=== PATIENT | female | born 1950 | race Caucasian/White ===

== ENCOUNTER 2019-02-10 06:28 | Day surgery (SDC) | payer OTHER, MEDICARE ==
[2019-02-09 15:51] LABS: Absolute Lymphocytes (CBC) 5.2 K/uL (0.7-4.9); Basophils % 0.6 % (0-1.3); Eosinophils % 1.5 % (0-4.4); Hematocrit 43.4 % (36.0-45.0); Lymphocytes % 52.5 % (15.3-44.8); MPV 9.3 fL (7.6-11.3); Monocytes % 4.8 % (3.3-12.3); RBC Red Blood Cell Count 4.91 M/uL (3.86-4.86)
[2019-02-09 15:57] LABS: Protime INR 0.92
--- NOTE | 2019-02-09 16:03 | RAD REPORT ---
EXAM DESCRIPTION: Meghan Tate (2 Views)02/09/2019 3:46 pm CLINICAL HISTORY: Hypertension/preop for cardiac catheterization COMPARISON: 2016 FINDINGS: The lungs appear clear of acute infiltrate. The heart is normal size IMPRESSION: No acute abnormalities displayed
[2019-02-09 16:04] LABS: Potassium 3.9 mmol/L (3.5-5.1)
[2019-02-09 16:58] LABS: Blood Morphology Comment NOT SEEN (NOT SEEN); Platelet Estimate ADEQ
--- OUTSIDE RECORDS SUMMARY | 2019-02-10 06:29 | XMS REPORT ---
:1950 [facility] Address [address] [place] [address] Dr. Felton [address] [place] [id number] Care Team Providers Name Role Phone Unavailable Unavailable Unavailable Problems This patient has no known problems. Allergies, Adverse Reactions, Alerts This patient has no known allergies or adverse reactions. Medications This patient has no known medications.
[2019-02-10] MEDS ORDERED: LIDOCAINE 1% MPF 30 ML VIAL ONE (06:56)
[2019-02-10] MEDS ORDERED: NA CHLORIDE 0.9% 500 ML ONE (06:56)
[2019-02-10] MEDS ORDERED: HEPA 1000U/500MLS 1,000 UNIT/500 ML BAG IV ONE (06:56)
[2019-02-10] MEDS ORDERED: MIDAZOLAM HCL 2 MG/2 ML INJ ONE (07:30)
[2019-02-10] MEDS ORDERED: ATROPINE SULF 1 MG/10 ML SYR IV ONE (07:30)
[2019-02-10] MEDS ORDERED: FENTANYL CITR 100 MCG/2 ML ONE (07:30)
[2019-02-10] MEDS ORDERED: NA CHLORIDE 0.9% 0 ML ONE (07:31)
--- NOTE | 2019-02-10 12:55 | OP ---
Surgeon: Jerald Metz MD Tax Services Intern: Sonia Meneses. History Of Present Illness: Ms. Mckeon is a 68-year-old white woman. She is a patient of Dr. Jones and has hypertension, dyslipidemia, had atypical chest pain, abnormal stress test. Brought to the physical laboratory assistant today as an outpatient. She had left heart catheterization with selective co ronary arteriogram. Procedure In Detail: She was prepped and draped in the routine sterile fashion, given 3 mg of Versed for IV sedation. Six-Beninese sheath introduced in the right common femoral artery. Angiography ther e was normal. Angio-Seal was used to close the case. A Azalia catheters 6-Beninese were used to do t he coronary injection. She had a normal RCA, normal circumflex, normal left main. Her LAD showed th at is free of disease approximately after the second diagonal. The artery is very small, about 1 mm in size, probably secondary to diffuse plaquing. There were no focal stenosis. Six-Beninese sheath an d catheters were used. No complications. Blood Loss: 5 cc. Postoperative Diagnosis: Mild CAD. Plan: Plan is for medical therapy. We will consider statin if she can tolerate it. Conscious Sedation: 30 minutes. DELROY/AYLEEN Voice ID: [id number] Report ID: [id number]
== END 2019-02-10 09:50 | disposition home or self-care (01) ==
LOC: CCL 06:28
DX: I25.10 Atherosclerotic heart disease of native coronary artery without angina pectoris (principal); I10 Essential (primary) hypertension; E78.5 Hyperlipidemia, unspecified; E78.6 Lipoprotein deficiency; K21.9 Gastro-esophageal reflux disease without esophagitis; M81.0 Age-related osteoporosis without current pathological fracture; Z91.048 Other nonmedicinal substance allergy status; Z82.49 Family history of ischemic heart disease and other diseases of the circulatory system
CPT/HCPCS: 85025; 80048; 36415; 85610; 85730; 71046; 93454; C1893; C1760; J2250; J3010; J0583

== ENCOUNTER 2020-05-08 16:19 | Emergency (ER) | payer OTHER, MEDICARE ==
[2020-05-08] MEDS ORDERED: NA CHLORIDE 0.9% 1,000 ML ONE (17:32)
[2020-05-08 17:38] LABS: Absolute Lymphocytes (CBC) 5.1 K/uL (0.7-4.9); Basophils % 0.3 % (0-1.3); Hematocrit 40.2 % (36.0-45.0); MPV 8.9 fL (7.6-11.3)
[2020-05-08 17:46] LABS: Protime INR 0.92
[2020-05-08 17:59] LABS: ALT/SGPT 20 U/L (12-78); AST/SGOT 19 U/L (15-37); Albumin 3.7 g/dL (3.4-5.0); Alkaline Phosphatase 68 U/L (45-117); BUN Blood Urea Nitrogen 19 mg/dL (7-18); Bicarbonate 29 mmol/L (21-32); Bilirubin Direct < 0.1 mg/dL (0-0.2); Bilirubin Total 0.3 mg/dL (0.2-1.0); Glucose Level 166 mg/dL (74-106); Lipase 189 U/L (73-393); NT PRO-BNP 292 pg/mL (<125); Potassium 3.1 mmol/L (3.5-5.1); Protein, Total 7.4 g/dL (6.4-8.2); Sodium Level 138 mmol/L (136-145); Troponin (Emerg Dept Use Only) < 0.02 ng/mL (0.0-0.045)
[2020-05-08 18:30] LABS: Urine Blood TRACE (NEG); Urine Glucose NEGATIVE (NEG); Urine Protein NEGATIVE (NEG); Urine pH 5.5 (5.0-7.0)
[2020-05-08] MEDS ORDERED: NS KCL 20MEQ 1,000 ML IV ONE (18:31)
[2020-05-08] MEDS ORDERED: POTASSIUM 25 MEQ EFFERV TAB ONE (18:31)
[2020-05-08] MEDS ORDERED: CIPROFLOXACIN 400mg IV 400 MG/200 ML BAG IV ONE (18:31)
[2020-05-08] MEDS ORDERED: METRONIDAZOLE 500mg IVPB 500 MG/100 ML BAG IV ONE (18:31)
--- NOTE | 2020-05-08 18:51 | RAD REPORT ---
EXAM DESCRIPTION: CT - Abdomen Pelvis W Contrast - 05/08/2020 6:28 pm CLINICAL HISTORY: Abdominal pain COMPARISON: none. TECHNIQUE: Computed axial tomography of the abdomen pelvis was obtained. 100 cc Isovue-300 was admin istered intravenously. Oral contrast was not requested which limits evaluation of bowel. All CT scans are performed using dose optimization technique as appropriate and may include automated exposure control or mA/KV adjustment according to patient size. FINDINGS: The liver, spleen, pancreas, adrenal and kidneys appear unremarkable. There is no evidence of diverticulitis. Normal appendix. Hysterectomy Small hiatal hernia. Wall of the distal stomach is mildly thickened IMPRESSION: Wall of the distal stomach is mildly thickened. This could be secondary to incomplete di stention or pathology such as inflammation. .
--- NOTE | 2020-05-08 18:52 | RAD REPORT ---
EXAM DESCRIPTION: Meghan Single View05/08/2020 5:39 pm CLINICAL HISTORY: Cough COMPARISON: 2019 FINDINGS: The lungs appear clear of acute infiltrate. The heart is normal size IMPRESSION: No acute abnormalities displayed
--- NOTE | 2020-05-08 20:35 | ER ---
Nurse's Notes [facility] Name: Kasia Mckeon Age: 69 yrs Sex: Female : 1950 Arrival Date: 05/08/2020 Time: 16:21 Bed 13 Private MD: Diagnosis: Diarrhea, unspecified;Abdominal tenderness;Weakness;Hypokalemia Presentation: 05/08 16:29 Chief complaint: Patient states: "my symptoms started about 45 min ago. I was having jd3 sever pain that felt like i needed to have diarrhea. but nothing came out. I started sweating and both my hands got numb and I was light headed and shortness. My blood pressure was a little low as well. right now the biggest thing is a headache dizziness, and the shortness of breath. the tingling went away.". Coronavirus screen: At this time, the client does not indicate any symptoms associated with coronavirus-19. Ebola Screen: Patient negative for fever greater than or equal to 101.5 degrees Fahrenheit, and additional compatible Ebola Virus Disease symptoms. Initial Sepsis Screen: Does the patient meet any 2 criteria? No. Patient's initial sepsis screen is negative. Does the patient have a suspected source of infection? No. Patient's initial sepsis screen is negative. Risk Assessment: Do you want to hurt yourself or someone else? Patient reports no desire to harm self or others. Onset of symptoms was May 08, 2020. 16:29 Method Of Arrival: Ambulatory jd3 16:29 Acuity: MINI 3 jd3 Triage Assessment: 23:03 Respiratory: the patient has mild shortness of breath. jd3 Historical: - Allergies: 16:35 No Known Allergies; jd3 - Home Meds: 16:35 Lisinopril Oral [Active]; Metoprolol Tartrate Oral [Active]; ezetimibe oral oral jd3 [Active]; colesevelam oral oral [Active]; Myrbetriq oral oral [Active]; alendronate oral oral [Active]; Aspirin Oral [Active]; Niacin Oral [Active]; docusate sodium Oral [Active]; - PSHx: 16:35 heart cath; Hysterectomy; jd3 - Immunization history:: Adult Immunizations up to date. - Social history:: Smoking status: Patient denies any tobacco usage or history of. Screenin:10 Abuse screen: Denies threats or abuse. Denies injuries from another. Nutritional ca1 screening: No deficits noted. Tuberculosis screening: No symptoms or risk factors identified. Fall Risk IV access (20 points). Assessment: 17:10 General: Appears in no apparent distress. comfortable, Behavior is calm, cooperative, ca1 appropriate for age. Pain: Complains of pain in right lower quadrant and left lower quadrant Quality of pain is described as crampy, Pain began 1 hour ago. Is intermittent, Also complains of nausea, shortness of breath. Neuro: Level of Consciousness is awake, alert, obeys commands, Oriented to person, place, time, situation. Cardiovascular: Heart tones S1 S2 present Capillary refill < 3 seconds Patient's skin is warm and dry. Rhythm is sinus rhythm. Respiratory: Reports shortness of breath Airway is patent Respiratory effort is even, unlabored, Respiratory pattern is regular, symmetrical, Breath sounds are clear bilaterally. GI: Abdomen is flat, non-distended, Bowel sounds present X 4 quads. Abd is soft and non tender X 4 quads. Reports diarrhea, nausea. : No signs and/or symptoms were reported regarding the genitourinary system. EENT: No signs and/or symptoms were reported regarding the EENT system. Derm: Skin is intact, is healthy with good turgor, Skin is pink, warm \\T\\ dry. Musculoskeletal: Circulation, motion, and sensation intact. Capillary refill < 3 seconds. 18:10 Reassessment: Patient appears in no apparent distress at this time. Patient and/or ca1 family updated on plan of care and expected duration. Pain level reassessed. Patient is alert, oriented x 3, equal unlabored respirations, skin warm/dry/pink. 18:28 Reassessment: Pt in Radiology. ca1 18:41 Reassessment: Patient appears in no apparent distress at this time. Patient and/or ca1 family updated on plan of care and expected duration. Pain level reassessed. Patient is alert, oriented x 3, equal unlabored respirations, skin warm/dry/pink. 19:40 Reassessment: Patient appears in no apparent distress at this time. Patient and/or ca1 family updated on plan of care and expected duration. Pain level reassessed. Patient is alert, oriented x 3, equal unlabored respirations, skin warm/dry/pink. 20:51 Reassessment: Patient appears in no apparent distress at this time. Patient and/or ca1 family updated on plan of care and expected duration. Pain level reassessed. Patient is alert, oriented x 3, equal unlabored respirations, skin warm/dry/pink. For discharge once NS with KCL is completed. 21:40 Reassessment: Patient appears in no apparent distress at this time. Patient and/or ca1 family updated on plan of care and expected duration. Pain level reassessed. Patient is alert, oriented x 3, equal unlabored respirations, skin warm/dry/pink. Pending NS with KCL completion. 23:03 Reassessment: Patient appears in no apparent distress at this time. Patient and/or jd3 family updated on plan of care and expected duration. Pain level reassessed. Patient is alert, oriented x 3, equal unlabored respirations, skin warm/dry/pink. Patient states feeling better. Vital Signs: 16:35 BP 129 / 63; Pulse 69; Resp 20 S; Temp 97.7(O); Pulse Ox 100% on R/A; Weight 62.6 kg jd3 (R); Height 5 ft. 4 in. (162.56 cm) (R); Pain 3/10; 17:45 BP 128 / 56; Pulse 72; Resp 18 S; Pulse Ox 100% on R/A; ca1 18:41 BP 135 / 61; Pulse 75; Resp 16; Pulse Ox 100% ; mh5 19:40 BP 137 / 59; Pulse 72; Resp 17 S; Pulse Ox 100% on R/A; ca1 20:51 BP 137 / 59; Pulse 71; Resp 15 S; Pulse Ox 99% on R/A; ca1 21:40 BP 125 / 55; Pulse 66; Resp 18 S; Pulse Ox 100% on R/A; ca1 23:02 BP 120 / 58; Pulse 67; Resp 17 S; Pulse Ox 100% on R/A; jd3 16:35 Body Mass Index 23.69 (62.60 kg, 162.56 cm) jd3 ED Course: 16:21 Patient arrived in ED. ag5 16:32 Triage completed. jd3 16:44 Arm band placed on. EKG completed in triage. Results shown to MD. jd3 17:01 Bradley Lackey MD is Attending Physician. [facility] 17:01 Janett Barrera, RN is Primary Nurse. ca1 17:10 Patient has correct armband on for positive identification. Placed in gown. Bed in low ca1 position. Call light in reach. Side rails up X2. library monitor on. Pulse ox on. NIBP on. Warm blanket given. 17:31 Initial lab(s) drawn, by me, sent to lab. Inserted saline lock: 22 gauge in left ca1 antecubital area, using aseptic technique. Blood collected. 17:39 XRAY Chest (1 view) In Process Unspecified. EDMS 18:14 Tony Marr NP is PHCP. pm1 18:28 CT Abd/Pelvis - IV Contrast Only In Process Unspecified. EDMS 20:06 Repeat lab(s) drawn. by ED staff, sent to lab. ca1 20:34 Jerald Metz MD is Referral Physician. pm1 23:03 No provider procedures requiring assistance completed. IV discontinued, intact, jd3 bleeding controlled, No redness/swelling at site. Pressure dressing applied. Administered Medications: 17:32 Drug: NS 0.9% 1000 ml Route: IV; Rate: 1 bolus; Site: left antecubital; ca1 18:35 Follow up: Response: No adverse reaction; IV Status: Completed infusion; IV Intake: ca1 1000ml 18:35 Drug: NS 0.9% with KCl 20 mEq/L 1000 ml Route: IV; Rate: 250 ml/hr; Site: left ca1 antecubital; 23:04 Follow up: Response: No adverse reaction; IV Status: Completed infusion; IV Intake: jd3 1000ml 18:37 Drug: Flagyl 500 mg Volume: 100 ml; Route: IVPB; Rate: 200 ml/hr; Infused Over: 30 ca1 mins; Site: left antecubital; 19:15 Follow up: Response: No adverse reaction; IV Status: Completed infusion; IV Intake: ca1 100ml 18:40 Drug: Potassium Effervescent Tablet 25 mEq Route: PO; ca1 19:15 Follow up: Response: No adverse reaction ca1 19:15 Drug: Cipro 400 mg Volume: 200 ml; Route: IVPB; Infused Over: 60 mins; Site: left ca1 antecubital; 19:49 Follow up: Response: No adverse reaction; IV Status: Completed infusion ca1 Intake: 18:35 IV: 1000ml; Total: 1000ml. ca1 19:15 IV: 100ml; Total: 1100ml. ca1 23:04 IV: 1000ml; Total: 2100ml. jd3 Outcome: 20:34 Discharge ordered by . pm1 23:03 Discharged to home ambulatory, with family. jd3 23:03 Condition: stable 23:03 Discharge instructions given to patient, family, Instructed on discharge instructions, follow up and referral plans. medication usage, Demonstrated understanding of instructions, follow-up care, medications, Prescriptions given X 4. 23:04 Patient left the ED. jd3 Signatures: Dispatcher [employer] EDMS Bradley Lackey MD MD cha Marinas, Patrick, LEGAL ADMINISTRATIVE SECRETARY LEGAL ADMINISTRATIVE SECRETARY pm1 Ava Jean 5 Jim Baumann RN RN jd3 Janett Barrera RN RN ca1 Marlo, Clarke ag5 Corrections: (The following items were deleted from the chart) 23:04 23:03 Reassessment: Patient appears in no apparent distress at this time. Patient jd3 and/or family updated on plan of care and expected duration. Pain level reassessed. Patient is alert, oriented x 3, equal unlabored respirations, skin warm/dry/pink. jd3
--- NOTE | 2020-05-08 20:36 | EDPHYS ---
Physician Documentation [facility] Name: Kasia Mckeon Age: 69 yrs Sex: Female : 1950 Arrival Date: 05/08/2020 Time: 16:21 Bed 13 Private MD: ED Physician Bradley Lackey HPI: 05/08 17:17 This 69 yrs old Female presents to ER via Ambulatory with complaints of casimiro Shortness Of Breath, Blood Pressure Problem, Numbness Of Hand. Historical: - Allergies: 16:35 No Known Allergies; jd3 - Home Meds: 16:35 Lisinopril Oral [Active]; Metoprolol Tartrate Oral [Active]; ezetimibe oral oral jd3 [Active]; colesevelam oral oral [Active]; Myrbetriq oral oral [Active]; alendronate oral oral [Active]; Aspirin Oral [Active]; Niacin Oral [Active]; docusate sodium Oral [Active]; - PSHx: 16:35 heart cath; Hysterectomy; jd3 - Immunization history:: Adult Immunizations up to date. - Social history:: Smoking status: Patient denies any tobacco usage or history of. ROS: 17:19 Constitutional: Negative for fever, chills, and weight loss, Eyes: Negative for injury, casimiro pain, redness, and discharge, ENT: Negative for injury, pain, and discharge, Neck: Negative for injury, pain, and swelling, Cardiovascular: Negative for chest pain, palpitations, and edema, Back: Negative for injury and pain, : Negative for injury, bleeding, discharge, and swelling, MS/Extremity: Negative for injury and deformity, Skin: Negative for injury, rash, and discoloration, Neuro: Negative for headache, weakness, numbness, tingling, and seizure, Psych: Negative for depression, anxiety, suicide ideation, homicidal ideation, and hallucinations, Allergy/Immunology: Negative for hives, rash, and allergies, Endocrine: Negative for neck swelling, polydipsia, polyuria, polyphagia, and marked weight changes. 17:19 Respiratory: Positive for shortness of breath. 17:19 Abdomen/GI: Positive for abdominal pain, nausea, diarrhea, of the right lower quadrant and left lower quadrant. Exam: 17:19 Constitutional: This is a well developed, well nourished patient who is awake, alert, casimiro and in no acute distress. Head/Face: Normocephalic, atraumatic. Eyes: Pupils equal round and reactive to light, extra-ocular motions intact. Lids and lashes normal. Conjunctiva and sclera are non-icteric and not injected. Cornea within normal limits. Periorbital areas with no swelling, redness, or edema. ENT: Nares patent. No nasal discharge, no septal abnormalities noted. Tympanic membranes are normal and external auditory canals are clear. Oropharynx with no redness, swelling, or masses, exudates, or evidence of obstruction, uvula midline. Mucous membranes moist. Neck: Trachea midline, no thyromegaly or masses palpated, and no cervical lymphadenopathy. Supple, full range of motion without nuchal rigidity, or vertebral point tenderness. No Meningismus. Chest/axilla: Normal chest wall appearance and motion. Nontender with no deformity. No lesions are appreciated. Cardiovascular: Regular rate and rhythm with a normal S1 and S2. No gallops, murmurs, or rubs. Normal PMI, no JVD. No pulse deficits. Respiratory: Lungs have equal breath sounds bilaterally, clear to auscultation and percussion. No rales, rhonchi or wheezes noted. No increased work of breathing, no retractions or nasal flaring. Back: No spinal tenderness. No costovertebral tenderness. Full range of motion. Female : Normal external genitalia. Skin: Warm, dry with normal turgor. Normal color with no rashes, no lesions, and no evidence of cellulitis. MS/ Extremity: Pulses equal, no cyanosis. Neurovascular intact. Full, normal range of motion. Neuro: Awake and alert, GCS 15, oriented to person, place, time, and situation. Cranial nerves II-XII grossly intact. Motor strength 5/5 in all extremities. Sensory grossly intact. Cerebellar exam normal. Normal gait. Psych: Awake, alert, with orientation to person, place and time. Behavior, mood, and affect are within normal limits. 17:19 Abdomen/GI: Inspection: abdomen appears normal, Bowel sounds: normal, Palpation: mild abdominal tenderness, in the right lower quadrant and left lower quadrant, Liver: no appreciated palpable abnormalities, Hernia: not appreciated. Vital Signs: 16:35 BP 129 / 63; Pulse 69; Resp 20 S; Temp 97.7(O); Pulse Ox 100% on R/A; Weight 62.6 kg jd3 (R); Height 5 ft. 4 in. (162.56 cm) (R); Pain 3/10; 17:45 BP 128 / 56; Pulse 72; Resp 18 S; Pulse Ox 100% on R/A; ca1 18:41 BP 135 / 61; Pulse 75; Resp 16; Pulse Ox 100% ; mh5 19:40 BP 137 / 59; Pulse 72; Resp 17 S; Pulse Ox 100% on R/A; ca1 20:51 BP 137 / 59; Pulse 71; Resp 15 S; Pulse Ox 99% on R/A; ca1 21:40 BP 125 / 55; Pulse 66; Resp 18 S; Pulse Ox 100% on R/A; ca1 23:02 BP 120 / 58; Pulse 67; Resp 17 S; Pulse Ox 100% on R/A; jd3 16:35 Body Mass Index 23.69 (62.60 kg, 162.56 cm) jd3 MDM: 17:01 Patient medically screened. [facility] 17:20 Differential diagnosis: CHF exacerbation, pneumonia, pulmonary edema, Unstable Angina. [facility] The patient's Wells Deep Vein Thrombosis Score was calculated as follows: Total Score: 0-2 Pts- Low Risk. The patient's pulmonary embolism risk score was calculated as follows: Total Score: 0-2 points. This patient was found to be at low risk for a pulmonary embolism by using the Well's assessment criteria. Immunization status: Pneumococcal vaccine: Data reviewed: vital signs, nurses notes, lab test result(s), EKG, radiologic studies, CT scan, plain films. Data interpreted: engine monitor: rate is 69 beats/min, rhythm is regular. Test interpretation: by ED physician or midlevel provider: ECG, plain radiologic studies. 18:02 Antibiotic administration: The patient is discharged and will get outpatient [facility] antibiotics, Cipro, Flagyl. Counseling: I had a detailed discussion with the patient and/or guardian regarding: the historical points, exam findings, and any diagnostic results supporting the discharge/admit diagnosis, lab results, radiology results, the need for outpatient follow up, for definitive care, a dice manager, an assistant accounting manager. 20:34 Counseling: I had a detailed discussion with the patient and/or guardian regarding: lab pm1 results, negative repeat troponin. 05/08 17:17 Order name: Basic Metabolic Panel; Complete Time: 18:00 [facility] 05/08 17:17 Order name: CBC with Diff; Complete Time: 17:57 [facility] 05/08 17:17 Order name: LFT's; Complete Time: 18:00 [facility] 05/08 17:17 Order name: Magnesium; Complete Time: 18:00 [facility] 05/08 17:17 Order name: NT PRO-BNP; Complete Time: 18:00 [facility] 05/08 17:17 Order name: PT-INR; Complete Time: 17:57 [facility] 05/08 17:17 Order name: Troponin (emerg Dept Use Only); Complete Time: 18:00 [facility] 05/08 17:17 Order name: XRAY Chest (1 view); Complete Time: 18:55 [facility] 05/08 17:17 Order name: Lipase; Complete Time: 18:00 [facility] 05/08 17:17 Order name: Urine Culture 05/08 18:03 Order name: Troponin I: at 2000hrs; Complete Time: 20:33 [facility] 05/08 18:25 Order name: Urine Dipstick--Ancillary (enter results); Complete Time: 18:31 05/08 17:17 Order name: EKG; Complete Time: 17:18 [facility] 05/08 17:17 Order name: Cardiac monitoring; Complete Time: 17:33 [facility] 05/08 17:17 Order name: EKG - Nurse/Tech; Complete Time: 17:33 [facility] 05/08 17:17 Order name: IV Saline Lock; Complete Time: 17:33 [facility] 05/08 17:17 Order name: Labs collected and sent; Complete Time: 17:33 [facility] 05/08 17:17 Order name: O2 Per Protocol; Complete Time: 17:33 [facility] 05/08 17:17 Order name: O2 Sat Monitoring; Complete Time: 17:33 [facility] 05/08 17:17 Order name: Urine Dipstick-Ancillary (obtain specimen); Complete Time: 18:28 [facility] 05/08 17:17 Order name: CT Abd/Pelvis - IV Contrast Only; Complete Time: 18:55 casimiro Administered Medications: 17:32 Drug: NS 0.9% 1000 ml Route: IV; Rate: 1 bolus; Site: left antecubital; ca1 18:35 Follow up: Response: No adverse reaction; IV Status: Completed infusion; IV Intake: ca1 1000ml 18:35 Drug: NS 0.9% with KCl 20 mEq/L 1000 ml Route: IV; Rate: 250 ml/hr; Site: left ca1 antecubital; 23:04 Follow up: Response: No adverse reaction; IV Status: Completed infusion; IV Intake: jd3 1000ml 18:37 Drug: Flagyl 500 mg Volume: 100 ml; Route: IVPB; Rate: 200 ml/hr; Infused Over: 30 ca1 mins; Site: left antecubital; 19:15 Follow up: Response: No adverse reaction; IV Status: Completed infusion; IV Intake: ca1 100ml 18:40 Drug: Potassium Effervescent Tablet 25 mEq Route: PO; ca1 19:15 Follow up: Response: No adverse reaction ca1 19:15 Drug: Cipro 400 mg Volume: 200 ml; Route: IVPB; Infused Over: 60 mins; Site: left ca1 antecubital; 19:49 Follow up: Response: No adverse reaction; IV Status: Completed infusion ca1 Disposition: 05/09 07:12 Co-signature as Attending Physician, Bradley Lackey MD I agree with the assessment and casimiro plan of care. Disposition: 05/08/20 20:34 Discharged to Home. Impression: Diarrhea, unspecified, Abdominal tenderness, Weakness, Hypokalemia. - Condition is Stable. - Discharge Instructions: Abdominal Pain, Adult, Diarrhea, Adult, Potassium Content of Foods, Weakness, Fatigue, Abdominal Pain, Adult, Tyaw-ha-Hoxu, Diarrhea, Adult, Rusy-qh-Shtj, Weakness, Irez-ng-Vqrx, Hypokalemia. - Prescriptions for Bentyl 20 mg Oral Tablet - take 1 tablet by ORAL route every 6 hours As needed; 20 tablet. Flagyl 500 mg Oral Tablet - take 1 tablet by ORAL route every 8 hours for 7 days; 21 tablet. Zofran 4 mg Oral Tablet - take 1 tablet by ORAL route every 12 hours As needed; 20 tablet. Cipro 500 mg Oral Tablet - take 1 tablet by ORAL route every 12 hours for 7 days; 14 tablet. - Medication Reconciliation Form, Thank You Letter, Antibiotic Education, Prescription Opioid Use form. - Follow up: Private Physician; When: 2 - 3 days; Reason: Recheck today's complaints, Continuance of care, Re-evaluation by your physician. Follow up: Jerald Metz; When: 2 - 3 days; Reason: Recheck today's complaints, Continuance of care, Re-evaluation by your physician. - Problem is new. - Symptoms have improved. Signatures: Dispatcher [employer] EDMS Bradley Lackey MD MD cha Marinas, Patrick, PRESS TENDER PRESS TENDER pm1 Jim Baumann, RN RN jd3 Janett Barrera RN RN ca1 Corrections: (The following items were deleted from the chart) 05/08 23:04 20:34 05/08/2020 20:34 Discharged to Home. Impression: Diarrhea, unspecified; Abdominal jd3 tenderness; Weakness; Hypokalemia. Condition is Stable. Discharge Instructions: Abdominal Pain, Adult, Diarrhea, Adult, Potassium Content of Foods, Weakness, Fatigue, Abdominal Pain, Adult, Exmw-gy-Ntyr, Diarrhea, Adult, Gwcm-fa-Kdza, Weakness, Buno-bv-Rgen, Hypokalemia. Prescriptions for Bentyl 20 mg Oral Tablet - take 1 tablet by ORAL route every 6 hours As needed; 20 tablet, Flagyl 500 mg Oral Tablet - take 1 tablet by ORAL route every 8 hours for 7 days; 21 tablet, Zofran 4 mg Oral Tablet - take 1 tablet by ORAL route every 12 hours As needed; 20 tablet, Cipro 500 mg Oral Tablet - take 1 tablet by ORAL route every 12 hours for 7 days; 14 tablet. and Forms are Medication Reconciliation Form, Thank You Letter, Antibiotic Education, Prescription Opioid Use. Follow up: Private Physician; When: 2 - 3 days; Reason: Recheck today's complaints, Continuance of care, Re-evaluation by your physician. Follow up: Jerald Metz; When: 2 - 3 days; Reason: Recheck today's complaints, Continuance of care, Re-evaluation by your physician. Problem is new. Symptoms have improved. pm1
[2020-05-08 23:18] VITALS: TEMP 97.7
[2020-05-08 23:25] VITALS: O2SAT 100
[2020-05-08 23:26] VITALS: BP 120/58
--- OUTSIDE RECORDS SUMMARY | 2020-05-12 01:24 | XMS REPORT | Continuity of Care Document ---
:[address] [facility] t Address [address] [place] [address] Care Team Providers Name Role Phone Joanne Cabrera MD Attending Clinician Problems This patient has no known problems. Allergies, Adverse Reactions, Alerts This patient has no known allergies or adverse reactions. Medications This patient has no known medications. Procedures This patient has no known procedures. Encounters Start End Encounter Admission Attending Care Care Encounter Source Date/Time Date/Time Type Type Clinicians Facility Department ID 2020-03-02 2020-03-21 Office Lizeth Cabrera NVJUAN [id number] [id number] 09:29:17 16:08:13 Visit Joanne GONZALEZ [id number] [place] [id number] [place] [id number] DI[facility]ES [facility]INIC Results This patient has no known results.
== END 2020-05-08 23:04 | disposition home or self-care (01) ==
LOC: ER 16:19
DX: E87.6 Hypokalemia (principal); R19.7 Diarrhea, unspecified; R53.1 Weakness
CPT/HCPCS: 96365; 96367; 96361; 93005; 87088; 85025; 87086; 80048; 36415; 83735; 85610; 80076; 81003; 84484 ×2; 83690; 83880; 74177; 71045; 99284; Q9967; J7030; J0744

== ENCOUNTER 2022-06-19 10:39 | Emergency (ER) | payer OTHER, MEDICARE ==
--- OUTSIDE RECORDS SUMMARY | 2022-06-19 10:43 | XMS REPORT | Continuity of Care Document ---
:1950 Author Organization [facility] t Address [address] [place] [address] Care Team Providers Name Role Phone Jose L Herrera Primary Care Physician SUSIE URBAN Attending Clinician Unavailable JOAQUINA HERRON Attending Clinician Unavailable Joaquina Herron MD Attending Clinician Doctor Unassigned, [place] Attending Clinician Unavailable EDYTA CHENG Attending Clinician Unavailable Edyta Almanzar Attending Clinician [phone] GINNY ECHEVARRIA Attending Clinician Unavailable Susie Urban MD Attending Clinician Only, Adc Test Attending Clinician Unavailable Unique Fernandez MD Attending Clinician UNIQUE FERNANDEZ Attending Clinician Unavailable SUSIE URBAN Admitting Clinician Unavailable Susie Urban MD Admitting Clinician Payers Payer Name Policy Type Policy Number Effective Date Expiration Date S riri MEDICARE PART A \T\ [id number] 2017 B 00:00:00 [facility] [id number] 2018 MEDICARE SUPPLEMENT 00:00:00 Problems Condition Condition Condition Status Onset Resolution Last Treating Co mments Source Name Details Category Date Date Treatment Clinician Date No known No known Disease Unive rs active active ity of problems problems [facility] Allergies, Adverse Reactions, Alerts This patient has no known allergies or adverse reactions. Social History Social Habit Start Date Stop Date Quantity Comments Source Exposure to 2022-03-17 2022-03-27 Not sure [facility]-CoV-2 00:00:00 10:48:00 [facility] (event) Branch Alcohol intake 2022-03-27 2022-03-27 0 /d University 00:00:00 00:00:00 [facility] Tobacco use and 2022-03-27 2022-03-27 Smokeless tobacco Un iversity of exposure 00:00:00 00:00:00 non-user [facility] Sex Ass[birth year] Universit y of 00:00:00 00:00:00 [facility] Smoking Status Start Date Stop Date Source Never smoked tobacco [facility] Medications Ordered Filled Start Stop Current Ordering Indication Dosage Frequency Signature Comments Components Source Medication Medication Date Date Medication? Clinician (SIG) Name Name clobetasoL Yes [id number] Apply to Univers 0.05 % 8-23 area(s) 2 ity of external 00:00: (two) [place] solution 00 times Medical daily. Branch fluocinonid Yes [id number] Apply to Univers e 0.05 % 8-24 area(s) 2 ity of solution 00:00: (two) [place] 00 times Medical daily. Branch MESALAMINE 2019-08 Yes Take by Univ ers (APRISO 0-21 mouth. ity of ORAL) 10:21: [address] EZETIMIBE 2019-08 Yes 10mg Take 10 mg Un armond (ZETIA 0-21 by mouth ity of ORAL) 10:21: daily. [address] TRIAMTERENE 2019-08 Yes Take by Uni vers ORAL 0-21 mouth. ity of 10:21: [address] RABEPRAZOLE 2019-08 Yes Take by Uni vers SODIUM 0-21 mouth. ity of (ACIPHEX 10:21: [place] ORAL) [address] [place] [address] DOCOSAHEXAN 2019-08 Yes Take by Uni vers OIC 0-21 mouth. ity of ACID/EPA 10:21: [place] (FISH OIL [address] [place] [address]) [place] triamterene 2019-08 Yes 1{capsu Take 1 Cap Univers -hydrochlor 0-21 le} by mouth ity of othiazide 10:21: daily. [place] (DYAZIDE) Medical 50-25 mg Branch per capsule ezetimibe 2019-08 Yes 10mg Take 10 mg Un armond (ZETIA) 10 0-21 by mouth ity o f mg tablet 10:21: daily. [place] [address] Medical Branch colesevelam 2019-08 Yes 3750mg Take 3,750 Univers (WELCHOL) 0-21 mg by ity of 625 mg 10:21: mouth 2 [place] tablet (two) Medical times Branch daily with meals. mesalamine 2019-08 Yes 375mg Take 375 Un armond (APRISO) 0-21 mg by ity of 0.375 gram 10:21: mouth [place] 24 hr daily. Medical capsule Branch RABEprazole 2019-08 Yes 20mg Take 20 mg Univers (ACIPHEX) 0-21 by mouth ity of 20 mg 10:21: daily. [place] tablet Medical Branch vit 2019-08 Yes 1{capsu Take 1 Cap Univ ers C,E-Zn-yadira 0-21 le} by mouth ity of r-lutein-ze 10:21: [place]. [place] (PRESERVISI Branch ON AREDS 2) 250-200-40- 1 mg-unit-mg- mg Cap aspirin 81 2019-08 Yes 81mg Take 81 mg U nivers mg EC 0-21 by mouth ity of tablet 10:21: daily. [place] [address] Medical Branch multivit 2019-08 Yes 2{each} Take 2 Univ ers with 0-21 Each by ity of min-folic 10:21: mouth [place] acid 32 daily. Medical (ONE-A-DAY Branch VITACRAVES) 200 mcg Chew omega-3 2019-08 Yes 1g Take 1 g Univer s fatty 0-21 by mouth ity of acids-vitam 10:21: [place]. [place] (FISH Medical OIL) 1,000 Branch mg capsule omeprazole 2019-08 Yes 40mg Take 40 mg U nivers 40 mg 0-21 by mouth ity of capsule 10:21: daily. [place] [address] Medical Branch METOPROLOL 2019-08 Yes 50mg Take 50 mg U nivers TARTRATE 0-21 by mouth 2 ity o f ORAL 10:21: (two) [address] daily[address] Branch LISINOPRIL 2019-08 Yes 20mg Take 20 mg U nivers ORAL 0-21 by mouth 2 ity of 10:21: (two) [place] 32 times Medical daily. Branch Cranberry 2019-08 Yes 3000mg Take 3,000 Univers 500 mg Cap 0-21 mg by ity of 10:21: mouth. [place] [address] Medical Branch alendronate 2019-08 Yes Take by Uni vers sodium/idania 0-21 mouth. ity of min D3 10:21: [place] (FOSAMAX 32 Medical PLUS D Branch ORAL) niacin 2019-08 Yes 500mg Take 500 Univer s (SLO-NIACIN 0-21 mg by ity of ) 500 mg 10:21: mouth 2 [place] tablet 32 (two) Medical times Branch daily. mirabegron 2019-08 Yes 50mg Take 50 mg U nivers (MYRBETRIQ) 0-21 by mouth ity of 25 mg 10:21: daily. [place] tablet Medical Branch vit 2019-08 Yes Take by Univers C/E/Zn/yadira 0-21 mouth. ity of r/lutein/ze 10:21: [place] [facility] (PRESERVISI Branch ON AREDS-2 ORAL) bisacodyL 5 2019-08 Yes 5mg Take 5 mg U nivers mg EC 0-21 by mouth ity of tablet 10:21: once daily [place] [address] as needed Medical for Branch Constipati on. vit 2019-08 Yes Take 2 Univers C/E/zinc 0-21 TAB-CAP/M2 ity o f ox/yadira/lut 10:21: by mouth [place] /zeax 32 daily. Medical (ICAPS Branch AREDS2 ORAL) Immunizations Ordered Filled Immunization Date Status Comments [facility] e Immunization Name Name SARS-COV-2 COVID-19 2020-09-11 Completed Unive rsity of MODERNA VACCINE 00:00:00 [place] [facility] Branch SARS-COV-2 COVID-19 2020-08-14 Completed Unive rsity of MODERNA VACCINE 00:00:00 [place] [facility] Vital Signs Vital Name Observation Time Observation Value Comments Source Body height 2022-03-27 15:53:00 162.6 cm [facility] Medical [place] Procedures This patient has no known procedures. Encounters Start End Encounter Admission Attending Care Care Encounter Source Date/Time Date/Time Type Type Clinicians Facility Department ID 2021-06-02 Outpatient R JAG [facility] [id number] Univers 23:22:31 E, SUSIE ity [facility] 2021-06-02 Outpatient R JAG [facility] [id number] Univers 00:26:47 ESUSIEy [facility] 2022-03-27 2022-03-27 Outpatient R JOAQUINA HERRON [facility] [id number] Univers 11:15:00 11:47:07 ity of [facility] 2022-03-27 2022-03-27 Office Joaquina Herron [facility] 1.2.840.114 [id number] Univers 11:15:00 11:47:07 Visit Joanne GONZALEZ [id number] ity [id number] [place] [id number] [address] DI[facility]ES CLINIC 2022-03-27 2022-03-27 Orders Doctor MERRILL 1.2.840.114 [id number] Univers 00:00:00 00:00:00 Only Unassigned, [place]OR[place] [id number] [facility] [id number] [place] as [id number] [address] 2021-08-01 2021-08-01 Outpatient R BRITNEY [facility] [id number] Univers 15:00:00 15:34:25 EDYTA lee [facility] 2021-08-01 2021-08-01 Office Britney [facility] 1.2.840.114 [id number] Univers 15:00:00 15:34:25 Visit Edyta GONZALEZ [id number] it[id number] [id number] [address] DIABETES CLINIC 2021-03-28 2021-03-28 Office Joaquina Herron [facility] 1.2.840.114 [id number] Univers 11:10:41 11:52:46 Visit Joanne GONZALEZ [id number] [id number] [id number] [address] DIABETES CLINIC 2021-03-28 2021-03-28 Outpatient JOAQUINA MUNIZ [facility] [id number] Univers 11:30:00 11:30:00 ity [facility] 2020-09-11 2020-09-11 Outpatient R WALE, [facility] [id number] Univers 11:30:00 11:30:00 GINNY [facility] 2020-08-14 2020-08-14 Outpatient Keron ECHEVARRIAUC [facility] [id number] Univers 11:30:00 11:30:00 GINNY [facility] 2020-05-25 2020-05-25 [facility] 1.2.840.114 [id number] Univers 07:57:00 10:18:00 Encounter Susie villagran 350.1.13.10 ity of [place] 4.2.7.2.686 [facility] Surgical [id number] [address] 2020-05-25 2020-05-25 [facility] 1.2.840.114 [id number] 07:57:00 10:18:00 Encounter Susie villagran [place] 350.1.13.10 [place] 4.2.7.2.686 Surgical [id number] [place] [id number] 2020-05-24 2020-05-24 Laboratory Only, [facility] Test [facility] 1.2.840. 114 [id number] Univers 13:21:29 13:36:29 Only Susie Urban [place] 350.1.1 3.10 [place]2.7.2.686 [place] [id number] [address] 2020-05-24 2020-05-24 Laboratory Only, [facility] 1.2.840.114 [id number] 13:21:29 13:36:29 Only Test [place] 350.1.13.10 [place] [id number] [place] [id number] [facility] 2020-05-24 2020-05-24 Outpatient R [facility] [id number] Univers 13:15:00 13:15:00 SUSIE Villagran o f [facility] 2020-03-02 2020-03-21 Office Joaquina Herron [facility] 1.2.840.114 [id number] Univers 09:29:17 16:08:13 [facility] 350.1.13.10 [place] [id number] [facility] AND [place] Angela [place] DIABETES [facility] 2020-03-02 2020-03-21 Office Joaquina Herron [facility] 1.2.840.114 [id number] 09:29:17 16:08:13 [facility] 350.1.13.10 [place] 4.2.7.2.[address] [place] [id number] DIABETES [facility] 2020-03-02 2020-03-02 Outpatient R JOAQUINA HERRON [facility] [id number] Univers 09:30:00 09:30:00 ity of [facility] 2020-03-02 2020-03-02 Orders Doctor MERRILL 1.2.840.114 [id number] Univers 00:00:00 00:00:00 Only Unassigned, DORIS 350.1.13.[address] [place] [facility] 4.2.7.2.686 Mario as [id number] [facility] 009 [place] 2020-01-28 2020-01-28 [facility] 1.2.840.114 [id number] Univers 06:34:00 09:15:00 Susie [place] 350.1.13.10 [place].2.[place] [id number] [facility] 071 [place] 2020-01-27 2020-01-27 Laboratory Only, Adc Test [facility] 1.2.840. 114 [id number] Univers 13:28:50 17:31:42 Only Unique Fernandez 350.1.13.10 ity [place] 4.2.7.2.686 [place] [id number] [facility] 353 [place] 2020-01-27 2020-01-27 Outpatient R UNIQUE FERNANDEZ [facility] [id number] Univers 13:15:00 13:15:00 ity of [facility] 2020-01-27 2020-01-27 Orders Doctor MERRILL 1.2.840.114 [id number] Univers 00:00:00 00:00:00 Only Unassigned, DORIS 350.1.13.[address] [place] [facility] 4.2.7.2.686 [place] [id number] [facility] 009 Branch Results This patient has no known results.
[2022-06-19] MEDS ORDERED: ONDANSETRON 4 MG/2 ML VIAL ONE (12:12)
[2022-06-19] MEDS ORDERED: DICYCLOMINE HCL 20 MG/2 ML AMP IM ONE (12:12)
[2022-06-19 12:38] LABS: Absolute Lymphocytes (CBC) 5.2 K/uL (0.7-4.9); Hematocrit 42.3 % (36.0-45.0); Lymphocytes % 36.9 % (15.3-44.8); MCV 86.6 fL (80-100); MPV 8.2 fL (7.6-11.3); RBC Red Blood Cell Count 4.88 M/uL (3.86-4.86)
[2022-06-19 12:44] LABS: Protime INR 0.99
[2022-06-19 12:55] LABS: Albumin 3.8 g/dL (3.4-5.0); Bilirubin Total 0.5 mg/dL (0.2-1.0); Potassium 3.3 mmol/L (3.5-5.1); Protein, Total 7.6 g/dL (6.4-8.2)
--- NOTE | 2022-06-19 13:41 | RAD REPORT ---
EXAM DESCRIPTION: CT - Abdomen Pelvis W Contrast - 06/19/2022 1:16 pm CLINICAL HISTORY: lower abdomen pain COMPARISON: Abdomen Pelvis W Contrast dated 05/08/2020 TECHNIQUE: Biphasic, helical CT imaging of the abdomen and pelvis was performed following 100 ml non -ionic IV contrast. Oral contrast: No. All CT scans are performed using dose optimization technique as appropriate and may include automated exposure control or mA/KV adjustment according to patient size. FINDINGS: No suspicious findings in the lung bases. The liver, spleen, and pancreas show no suspicious findings. Gallbladder and biliary tree are also wi thout suspicious finding. Symmetric renal function is seen with no hydronephrosis or suspicious renal mass. No pyelonephritis o r acute parenchymal process. No bladder abnormalities. No adrenal abnormalities. Uterus is absent. Ov kvng are absent or atrophic. 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 There are numerous phleboliths along t he pelvic floor and adjacent to the vaginal cuff. Wu of the stomach or exaggerated by lack of intraluminal content. Mass, true wall thickening or ed kevon the gastric wu not suspected. No acute small bowel finding. No appendicitis. From cecum to mid descending colon there is no acute colon process. From the mid descending colon distally to the prox imal half of the sigmoid colon there is wall thickening and edema. Mild stranding is seen in the alonzo cent fat. This is typically acute diverticulitis. The patient has diverticulosis is very minimal. A n on diverticular colitis is possible. Current pattern is not typical for malignancy. No free air, free fluid or pneumatosis. No other area of inflammatory change. Fat extends into each inguinal canal. No congestion or edema. No mass or bulky lymphadenopathy. No acute bone finding identifiable. Decreased bone density in the posterior left L3 body is unchanged from 2020. This may be a small hemangioma. Prominent degenerative disc disease present at L4-5 and L 5-S1. Aortoiliac atherosclerotic calcifications are present. No acute vascular process. IMPRESSION: Circumferential wall thickening and edema involving the distal descending colon and prox imal sigmoid colon. Patient has minimal diverticulosis. Current pattern could be mild diverticulitis or a non diverticula r colitis. Mass lesion is not suspected.
[2022-06-19] MEDS ORDERED: POTASSIUM 25 MEQ EFFERV TAB ONE (13:58)
[2022-06-19] MEDS ORDERED: METRONIDAZOLE 500mg IVPB 500 MG/100 ML BAG IV ONE (13:58)
[2022-06-19] MEDS ORDERED: CIPROFLOXACIN 400mg IV 0 MG/0 ML BAG IV ONE (13:58)
[2022-06-19 14:54] LABS: Urine Blood Trace-intact (Negative); Urine Glucose Negative (Negative); Urine Protein Negative (Negative); Urine pH 6.5 (5.0-7.0)
[2022-06-19] MEDS ORDERED: CIPROFLOXACIN HCL 500 MG TAB ONE (15:01)
--- NOTE | 2022-06-19 15:03 | EDPHYS ---
Physician Documentation [facility] Name: Kasia Mckeon Age: 72 yrs Sex: Female : 1950 Arrival Date: 06/19/2022 Time: 10:43 Bed 13 Private MD: ED Physician Jamal Cao HPI: 06/19 11:30 This 72 yrs old Female presents to ER via Ambulatory with complaints of Rectal Bleeding.cp 11:30 The patient presents to the emergency department with bleeding from the rectum/anus, cp moderate amount bright red blood. 11:30 Onset: The symptoms/episode began/occurred yesterday. cp 11:30 Associate signs and symptoms: Pertinent positives: abdominal pain in the lower abdomen, cp diarrhea, vomiting, Pertinent negatives: constipation, diarrhea, dysuria, fever. 11:30 The patient has experienced a previous episode, several years ago. cp Historical: - Allergies: 11:11 No Known Allergies; jl7 - PMHx: 11:11 Hypertensive disorder; IBS; over- active bladder; Hypercholesterolemia; jl7 - PSHx: 11:11 Total abdominal hysterectomy; jl7 - Immunization history:: Client reports receiving the 2nd dose of the Covid vaccine. - Social history:: Smoking status: Patient denies any tobacco usage or history of. ROS: 11:35 Constitutional: Negative for body aches, chills, fever, poor PO intake. cp 11:35 Eyes: Negative for injury, pain, redness, and discharge. cp 11:35 ENT: Negative for drainage from ear(s), ear pain, sore throat, difficulty swallowing, difficulty handling secretions. 11:35 Cardiovascular: Negative for chest pain, edema, palpitations. 11:35 Respiratory: Negative for cough, shortness of breath, wheezing. 11:35 Abdomen/GI: Positive for abdominal pain, nausea, diarrhea, abdominal cramps, rectal bleeding, Negative for vomiting. 11:35 Back: Negative for pain at rest, pain with movement. 11:35 Neuro: Negative for altered mental status, dizziness, headache, syncope, weakness. 11:35 All other systems are negative. Exam: 11:40 Constitutional: The patient appears in no acute distress, alert, awake, comfortable, cp non-toxic, well developed, well nourished. 11:40 Head/Face: Normocephalic, atraumatic. cp 11:40 Eyes: Periorbital structures: appear normal, Conjunctiva: normal, no exudate, no injection, Sclera: no appreciated abnormality, Lids and lashes: appear normal, bilaterally. 11:40 ENT: External ear(s): are unremarkable, Nose: is normal, Mouth: Lips: moist, Oral mucosa: moist, Posterior pharynx: Airway: no evidence of obstruction, patent. 11:40 Neck: ROM/movement: is normal, is supple, without pain, no range of motions limitations. 11:40 Chest/axilla: Inspection: normal. 11:40 Cardiovascular: Rate: normal, Rhythm: regular, Edema: is not appreciated, JVD: is not appreciated. 11:40 Respiratory: the patient does not display signs of respiratory distress, Respirations: normal, no use of accessory muscles, no retractions, labored breathing, is not present, Breath sounds: are clear throughout, no decreased breath sounds. 11:40 Abdomen/GI: Inspection: abdomen appears normal, Bowel sounds: active, all quadrants, Palpation: soft, in all quadrants, mild abdominal tenderness, in the right lower quadrant and left lower quadrant, rebound tenderness, is not appreciated, involuntary guarding, is not appreciated, Rectal exam: Stool: guaiac positive, maroon, hemorrhoid(s), external, without bleeding, without inflammation, without thrombosis, without pain. 11:40 Back: pain, is absent, ROM is normal. 11:40 Neuro: Orientation: to person, place \T\ time. Mentation: is normal, Motor: moves all fours, strength is normal, Sensation: is normal, Gait: is steady. Vital Signs: 11:09 BP 167 / 70; Pulse 70; Resp 17; Temp 97.7; Pulse Ox 100% on R/A; Weight 65.77 kg; jl7 Height 5 ft. 4 in. (162.56 cm); Pain 0/10; 12:42 BP 157 / 63; Pulse 63; Resp 17; Pulse Ox 100% on R/A; tw2 13:38 BP 128 / 62; Pulse 66; Resp 17; Pulse Ox 100% on R/A; tw2 14:58 BP 143 / 76; Pulse 65; Resp 17; Pulse Ox 100% on R/A; tw2 15:36 BP 133 / 59; Pulse 68; Resp 17; Pulse Ox 100% on R/A; tw2 11:09 Body Mass Index 24.89 (65.77 kg, 162.56 cm) jl7 MDM: 11:20 Patient medically screened. 13:00 Differential diagnosis: hemorrhoids, fissure, diverticulitis, abscess, colitis, anemia. 14:00 Data reviewed: vital signs, nurses notes, lab test result(s), radiologic studies, CT cp scan. 14:34 Physician consultation: Doc Nadiacynthia was contacted at 14:34, regarding admission, to the medical/surgical unit. patient's condition, denies admission at this time for GI bleeding and believes patient can be treated with oral antibiotics or needs transfer for GI services for gastrointestinal bleeding. 14:55 ED course: VSS. Pain markedly improved with meds. No bowel movement and/or GI bleeding cp observed while in ED. Patient has primary GI physician. Patient refuses transfer at this time and comfortable with outpatient treatment with oral antibiotics. 06/19 12:08 Order name: CBC with Diff; Complete Time: 13:26 06/19 13:26 Interpretation: Normal except: WBC 14.10; RBC 4.88; LYMA 5.2. 06/19 12:08 Order name: CMP; Complete Time: 13:26 06/19 13:27 Interpretation: Normal except: K 3.3; GLUC 120; GFR 61; GLOB 3.8; A/G 1.0. 06/19 12:08 Order name: Lipase; Complete Time: 13:26 06/19 12:08 Order name: Urine Microscopic Only 06/19 12:08 Order name: PT-INR; Complete Time: 13:26 06/19 12:08 Order name: CT Abd/Pelvis - PO and IV Contrast; Complete Time: 13:48 06/19 13:51 Interpretation: Report reviewed. 06/19 14:55 Order name: Urine Dipstick-Ancillary; Complete Time: 14:58 EDIA 06/19 12:08 Order name: IV Saline Lock; Complete Time: 12:41 06/19 12:08 Order name: Labs collected and sent; Complete Time: 12:41 06/19 12:08 Order name: Urine Dipstick-Ancillary (obtain specimen); Complete Time: 15:01 cp Administered Medications: 12:30 Drug: Bentyl (dicyclomine) 20 mg Route: IM; Site: left gluteus; tw2 13:48 Follow up: Response: No adverse reaction tw2 12:41 Drug: Zofran (Ondansetron) 4 mg Route: IVP; Site: right antecubital; tw2 13:49 Follow up: Response: No adverse reaction tw2 14:12 Drug: metroNIDAZOLE 500 mg Volume: 100 ml; Route: IVPB; Infused Over: 30 mins; Site: tw2 right antecubital; 14:57 Follow up: Response: No adverse reaction; IV Status: Completed infusion; IV Intake: tw2 100ml 14:14 Drug: Potassium Effervescent Tablet 25 mEq Route: PO; tw2 14:57 Follow up: Response: No adverse reaction tw2 14:57 Not Given (provider switching to PO): Cipro (ciprofloxacin) 400 mg 200 ml IVPB once tw2 over 60 mins 15:04 Drug: Ciprofloxacin 500 mg Route: PO; tw2 15:36 Follow up: Response: No adverse reaction tw2 Disposition: 18:39 Co-signature as Attending Physician, Jamal Cao MD. rn Disposition Summary: 06/19/22 15:02 Discharge Ordered Location: Home cp Problem: new cp Symptoms: have improved cp Condition: Stable cp Diagnosis - Diverticulitis/Colitis of Descending and Sigmoid Colon cp - GI Bleed/ Gastrointestinal hemorrhage, unspecified cp Followup: cp - With: Private Physician - When: 1 week - Reason: Recheck today's complaints, primary GI physician Discharge Instructions: - Discharge Summary Sheet cp - Diverticulitis cp - Gastrointestinal Bleeding cp - Colitis cp Forms: - Medication Reconciliation Form cp - Thank You Letter cp - Antibiotic Education cp - Prescription Opioid Use cp Prescriptions: - Flagyl 500 mg Oral Tablet - take 1 tablet by ORAL route every 8 hours for 10 days; 30 tablet; Refills: 0, cp Product Selection Permitted - Zofran 4 mg Oral Tablet - take 1 tablet by ORAL route every 12 hours As needed; 20 tablet; Refills: 0, cp Product Selection Permitted - Cipro 500 mg Oral Tablet - take 1 tablet by ORAL route every 12 hours for 10 days; 20 tablet; Refills: 0, cp Product Selection Permitted - dicyclomine 20 mg Oral Tablet - take 1 tablet by ORAL route 4 times per day; 30 tablet; Refills: 0, Product cp Selection Permitted Signatures: Dispatcher [employer] EDMS Cao, Jamal, MD MD rn Bradley Thompson PA PA cp Wise, Tara, RN RN tw2 Víctor Rollins RN RN jl7 Corrections: (The following items were deleted from the chart) 06/20 15:15 11 11:30 Associate signs and symptoms: Pertinent positives: abdominal pain in the cp lower abdomen, loose stools, Pertinent negatives: constipation, diarrhea, fever, cp
--- NOTE | 2022-06-19 15:03 | ER ---
Nurse's Notes [facility] [place] Name: Kasia Mckeon Age: 72 yrs Sex: Female : 1950 Arrival Date: 06/19/2022 Time: 10:43 Bed 13 Private MD: Diagnosis: Diverticulitis/Colitis of Descending and Sigmoid Colon;GI Bleed/ Gastrointestinal hemorrhage, unspecified Presentation: 06/19 11:09 Chief complaint: Patient states: Intermittent diarrhea since 06/13/22, bloody in stool jl7 since yesterday; reports vomited once yesterday, abdominal pain yesterday and has resolved. Coronavirus screen: Vaccine status: Patient reports receiving the 2nd dose of the covid vaccine. At this time, the client does not indicate any symptoms associated with coronavirus-19. Ebola Screen: No symptoms or risks identified at this time. Initial Sepsis Screen: Does the patient meet any 2 criteria? No. Patient's initial sepsis screen is negative. Does the patient have a suspected source of infection? No. Patient's initial sepsis screen is negative. Risk Assessment: Do you want to hurt yourself or someone else? Patient reports no desire to harm self or others. Onset of symptoms was June 13, 2022. 11:09 Method Of Arrival: Ambulatory jl7 11:09 Acuity: MINI 3 jl7 Triage Assessment: 11:11 General: Appears in no apparent distress. uncomfortable, Behavior is calm, cooperative, jl7 appropriate for age. Pain: Denies pain. GI: Reports diarrhea, bloody stool. Historical: - Allergies: 11:11 No Known Allergies; jl7 - PMHx: 11:11 Hypertensive disorder; IBS; over- active bladder; Hypercholesterolemia; jl7 - PSHx: 11:11 Total abdominal hysterectomy; jl7 - Immunization history:: Client reports receiving the 2nd dose of the Covid vaccine. - Social history:: Smoking status: Patient denies any tobacco usage or history of. Screenin:51 Abuse screen: Denies threats or abuse. Nutritional screening: No deficits noted. tw2 Tuberculosis screening: No symptoms or risk factors identified. Fall Risk Secondary diagnosis (15 points) impaired mobility. Assessment: 12:43 Reassessment: Patient appears in no apparent distress at this time. No changes from tw2 previously documented assessment. Patient and/or family updated on plan of care and expected duration. Pain level reassessed. Patient is alert, oriented x 3, equal unlabored respirations, skin warm/dry/pink. 14:57 Reassessment: Patient appears in no apparent distress at this time. No changes from tw2 previously documented assessment. Patient and/or family updated on plan of care and expected duration. Pain level reassessed. Patient is alert, oriented x 3, equal unlabored respirations, skin warm/dry/pink. 14:58 Reassessment: Patient appears in no apparent distress at this time. Patient and/or tw2 family updated on plan of care and expected duration. Pain level reassessed. Patient is alert, oriented x 3, equal unlabored respirations, skin warm/dry/pink. Patient states feeling better. 15:36 Reassessment: Patient appears in no apparent distress at this time. Patient and/or tw2 family updated on plan of care and expected duration. Pain level reassessed. Patient is alert, oriented x 3, equal unlabored respirations, skin warm/dry/pink. Patient states feeling better. Patient states symptoms have improved. Vital Signs: 11:09 BP 167 / 70; Pulse 70; Resp 17; Temp 97.7; Pulse Ox 100% on R/A; Weight 65.77 kg; jl7 Height 5 ft. 4 in. (162.56 cm); Pain 0/10; 12:42 BP 157 / 63; Pulse 63; Resp 17; Pulse Ox 100% on R/A; tw2 13:38 BP 128 / 62; Pulse 66; Resp 17; Pulse Ox 100% on R/A; tw2 14:58 BP 143 / 76; Pulse 65; Resp 17; Pulse Ox 100% on R/A; tw2 15:36 BP 133 / 59; Pulse 68; Resp 17; Pulse Ox 100% on R/A; tw2 11:09 Body Mass Index 24.89 (65.77 kg, 162.56 cm) jl7 ED Course: 10:43 Patient arrived in ED. rg4 10:45 Bradley Thompson PA is PHCP. cp 10:45 Jamal Cao MD is Attending Physician. cp 11:11 Triage completed. jl7 11:11 Arm band placed on right wrist. jl7 11:13 Placed in gown. Bed in low position. Adult w/ patient. Pulse ox on. NIBP on. Warm tw2 blanket given. 11:51 Maty Nash, RN is Primary Nurse. tw2 12:05 Served as a conservation coordinator during rectal exam. tw2 12:30 Missed attempt(s): 22 gauge in left antecubital area. blood collected. Bleeding tw2 controlled, band aid applied, catheter tip intact. 12:40 Inserted saline lock: 22 gauge in right antecubital area, using aseptic technique. tw2 13:18 CT Abd/Pelvis - PO and IV Contrast In Process Unspecified. EDMS 15:01 Urine Microscopic Only Sent. tw2 15:37 IV discontinued, intact, bleeding controlled, No redness/swelling at site. Pressure tw2 dressing applied. Administered Medications: 12:30 Drug: Bentyl (dicyclomine) 20 mg Route: IM; Site: left gluteus; tw2 13:48 Follow up: Response: No adverse reaction tw2 12:41 Drug: Zofran (Ondansetron) 4 mg Route: IVP; Site: right antecubital; tw2 13:49 Follow up: Response: No adverse reaction tw2 14:12 Drug: metroNIDAZOLE 500 mg Volume: 100 ml; Route: IVPB; Infused Over: 30 mins; Site: tw2 right antecubital; 14:57 Follow up: Response: No adverse reaction; IV Status: Completed infusion; IV Intake: tw2 100ml 14:14 Drug: Potassium Effervescent Tablet 25 mEq Route: PO; tw2 14:57 Follow up: Response: No adverse reaction tw2 14:57 Not Given (provider switching to PO): Cipro (ciprofloxacin) 400 mg 200 ml IVPB once tw2 over 60 mins 15:04 Drug: Ciprofloxacin 500 mg Route: PO; tw2 15:36 Follow up: Response: No adverse reaction tw2 Medication: 11:56 VIS not applicable for this client. tw2 Intake: 14:57 IV: 100ml; Total: 100ml. tw2 Outcome: 15:02 Discharge ordered by . cp 15:37 Discharged to home ambulatory, with significant other. tw2 15:37 Condition: stable 15:37 Discharge instructions given to patient, significant other, Instructed on discharge instructions, follow up and referral plans. medication usage, Demonstrated understanding of instructions, follow-up care, medications, Prescriptions given X 4. 15:37 Patient left the ED. tw2 Signatures: Dispatcher [employer] EDMS Page, Bradley, PA PA cp Nash, Maty, RN RN tw2 Amy Reyna rg4 Víctor Rollins RN RN jl7 Corrections: (The following items were deleted from the chart) 12:42 12:42 Missed attempt(s): 22 gauge in left antecubital area. blood collected. Bleeding tw2 controlled, band aid applied, catheter tip intact. tw2
[2022-06-19 15:20] LABS: Urine RBC <5 /HPF (None Seen)
[2022-06-19 15:42] VITALS: TEMP 97.7; O2SAT 100
[2022-06-19 15:47] VITALS: BP 133/59
[2022-06-19 16:43] LABS: Urine Bacteria <20 /HPF (<20)
== END 2022-06-19 15:37 | disposition home or self-care (01) ==
LOC: ER 10:39
DX: K57.32 Diverticulitis of large intestine without perforation or abscess without bleeding (principal); K52.9 Noninfective gastroenteritis and colitis, unspecified; I10 Essential (primary) hypertension
CPT/HCPCS: 85025; 36415; 85610; 83690; 80053; 74177; Q9967; J0500; J2405; 81003; 81015; 96365; 96372; 96375; 99284; J0744